=== PATIENT | female | born 1995 | race Caucasian/White ===

== ENCOUNTER 2023-11-17 07:47 | Emergency (ER) | payer SELFPAY ==
[~2023-11-17] VITALS: Ht 170.2 cm; Wt 77.0 kg
[~2023-11-17 07:47] MED LIST: LISINOPRIL10 MG PO; METOPROLOL SUCC25 MG PO; METOPROLOL TART25 MG PO
--- OUTSIDE RECORDS SUMMARY | 2023-11-17 07:55 | XMS ---
PreManage Notification: CAROL ANN MIX Security Account Resolution Analyst Events No recent Security Events currently on file CRITERIA MET - [facility] - 2 Visits in 30 Days CARE PROVIDERS ALESSANDRO SWEET Internal Medicine Current PHONE: [phone] ROSHNI BELL Nurse Practitioner: Family Current PHONE: Unknown Jose De Jesus has no Care Guidelines for this patient. [place] VISIT COUNT (12 MO.) [address] [place] Jacob ([place]) TOTAL 4 NOTE: Visits indicate total known visits. ED/UCC VISIT TRACKING (12 MO.) 11/17/2023 07:48 [facility] TYPE: Emergency COMPLAINT: - BACK PAIN 10/30/2023 23:35 [facility] TYPE: Emergency COMPLAINT: - SOB DIAGNOSES: - Allergy status to narcotic agent - Anesthesia of skin - Hyperventilation - Other penitentiary (current) drug therapy - Other nonmedicinal substance allergy status - Syncope and collapse - Unspecified atrial fibrillation 07/28/2023 16:37 [facility] TYPE: Emergency COMPLAINT: - CHEST PAIN DIAGNOSES: - Allergy status to narcotic agent - Hypokalemia - Other chest pain - Other thread laster (current) drug therapy - Other nonmedicinal substance allergy status - Paroxysmal atrial fibrillation 12/12/2022 18:20 [facility] PRIEST ([place]) TYPE: Emergency DIAGNOSES: - Pelvic and perineal pain - abd pain - Abdominal Pain INPATIENT VISIT TRACKING (12 MO.) No inpatient visits to display in this time frame [email or web address]
[2023-11-17] MEDS ORDERED: CITALOPRAM HBR10 MG (08:02)
[2023-11-17 08:30] LABS: MCH 30.1 (27-36); RBC 4.65 M/ul (4.3-5.7)
[2023-11-17 08:33] LABS: BASOPHILS 0.7 % (0-2); EOSINOPHILS 0.5 % (0-6); HEMATOCRIT 40.7 % (35.0-50.0); LYMPHOCYTES 39.3 % (24-44); MCHC 34.4 g/dl (30-36); MCV 87.6 fl (81-99); MONOCYTES 7.9 % (0-12); NEUTROPHILS 51.6 % (39-80); PLATELET COUNT 286 K/uL (140-440)
[2023-11-17 08:37] LABS: BILIRUBIN, URINE NEGATIVE (negative); BLOOD/HGB, URINE NEGATIVE (Negative); KETONE, URINE NEGATIVE (Negative); LEUK ESTERASE, URINE NEGATIVE (negative); NITRITE, URINE NEGATIVE (negative); PH, URINE 5.5 (5-7)
[2023-11-17 08:42] LABS: ALBUMIN 4.2 g/dL (3.4-5.0); ALBUMIN/GLOBULIN RATIO 1.35 (1.1-2.4); ANION GAP 14.9 (7-21); BILIRUBIN, TOTAL 0.3 ng/dL (0.2-1.0); BUN/CREATININE RATIO 6.57 (6.0-28.6); CALCIUM 8.8 mg/dL (8.5-10.1); CREATININE, SERUM 0.76 mg/dL (0.55-1.02); POTASSIUM 3.9 mmol/L (3.5-5.1); PROTEIN, TOTAL 7.3 g/dL (6.4-8.2)
[2023-11-17 08:48] LABS: RED BLOOD CELLS, URINE 0-1 /hpf (0-5)
[2023-11-17 08:49] LABS: BACTERIA, URINE 1+ /hpf (negative); CASTS, URINE NONE SEEN \\lpf; COLLECTION TYPE, URINE CLEAN CATCH; CRYSTALS, URINE NONE SEEN (0-1+); EPITHELIAL CELLS, URINE SQUAMOUS 3+ /lpf (0-1+); REFLEX CULTURE, URINE No (No); WHITE BLOOD CELLS, URINE 0-1 /HPF (0-5)
[2023-11-17] MEDS ORDERED: PERCOCET 5-3251 EACH PO (09:44)
[2023-11-17 10:00] VITALS: BP 99/65
== END 2023-11-17 10:10 | disposition home or self-care (01) ==
LOC: ED 07:47
PROVIDERS: Emergency Medicine
DX: R07.89 Other chest pain (principal); M54.50 Low back pain, unspecified; M54.6 Pain in thoracic spine; I48.91 Unspecified atrial fibrillation; Y04.8XXA Assault by other bodily force, initial encounter; Z79.899 Other long term (current) drug therapy; Z88.5 Allergy status to narcotic agent; Z91.048 Other nonmedicinal substance allergy status
CPT/HCPCS: 36415; 71046; 72080; 80053; 81001; 83690; 85025; 96374; 99284-25; J1885

== ENCOUNTER 2023-12-22 18:32 | Emergency (ER) | payer OTHER ==
[~2023-12-22] VITALS: Ht 170.2 cm; Wt 77.4 kg
[~2023-12-22 18:32] MED LIST changes: +CITALOPRAM HBR10 MG; +PERCOCET 5-3251 EACH PO
[2023-12-22 18:50] LABS: BASOPHILS 0.8 % (0-2); EOSINOPHILS 0.3 % (0-6); HEMATOCRIT 41.6 % (35.0-50.0); HEMOGLOBIN 14.6 g/dL (12.0-18.0); LYMPHOCYTES 29.8 % (24-44); MCH 30.5 (27-36); MCHC 35.2 g/dl (30-36); MCV 86.6 fl (81-99); MONOCYTES 6.7 % (0-12); NEUTROPHILS 62.4 % (39-80); PLATELET COUNT 331 K/uL (140-440); RDW 12.6 (10.5-15.0)
[2023-12-22 19:11] LABS: ALBUMIN 4.2 g/dL (3.4-5.0); ALBUMIN/GLOBULIN RATIO 1.24 (1.1-2.4); ALKALINE PHOSPHATASE 82 U/L (46-116); ALT (SGPT) 20 U/L (14-59); ANION GAP 17.8 (7-21); AST (SGOT) 13 U/L (15-37); BILIRUBIN, TOTAL 0.7 ng/dL (0.2-1.0); BUN/CREATININE RATIO 7.52 (6.0-28.6); CALCIUM 9.5 mg/dL (8.5-10.1); CARBON DIOXIDE 21 mmol/L (21-32); CHLORIDE 103 mmol/L (98-107); CREATININE, SERUM 0.93 mg/dL (0.55-1.02); GLOMERULAR FILTRATION RATE,EST 85 mL/min (>60); MAGNESIUM 2.1 mg/dL (1.8-2.4); POTASSIUM 3.8 mmol/L (3.5-5.1); PROTEIN, TOTAL 7.6 g/dL (6.4-8.2); UREA NITROGEN 7 mg/dL (7-18)
[2023-12-22 19:53] VITALS: BP 92/78
--- NOTE | 2023-12-23 16:57 | EKG ---
[facility] [address] [facility] [address] [place] [address] Signed Sinus tachycardia with premature ventricular complexes or fusion complexes Otherwise normal ECG No previous ECGs available Confirmed by ELADIO WAY MD ([id number]) on 12/23/2023 4:57:15 PM Electronically Signed By: ELADIO WAY 12/23/23 1657 PATIENT NAME: CAROL ANN MIX Electrocardiogram DATE OF : [birth year] PHYSICIAN: ELADIO WAY REPORT #: [id number] REPORT IS CONFIDENTIAL AND NOT TO BE RELEASED WITHOUT AUTHORIZATION
== END 2023-12-22 19:53 | disposition home or self-care (01) ==
LOC: ED 18:32
PROVIDERS: Emergency Medicine
DX: R00.2 Palpitations (principal); R55 Syncope and collapse; I48.91 Unspecified atrial fibrillation; Z91.048 Other nonmedicinal substance allergy status; Z88.5 Allergy status to narcotic agent; Z79.899 Other long term (current) drug therapy
CPT/HCPCS: 36415; 71045; 80053; 83735; 84484; 85025; 93005; 93010; 99285-25